=== PATIENT | female | born 1960 | race Caucasian/White ===

== ENCOUNTER 2017-03-20 11:01 | Outpatient (CLI) | payer MEDICARE, OTHER ==
[~2017-03-20] VITALS: Ht 172.7 cm; Wt 118.6 kg
[2017-03-20 11:26] VITALS: BP 117/74
[2017-03-20 12:22] LABS: BASOPHILS % (AUTO) 0 % (0-10); EOSINOPHILS # (AUTO) 0.2 10^3/uL (0.0-0.3); EOSINOPHILS % (AUTO) 2 % (0-10); LYMPHOCYTES # (AUTO) 4.2 X 10^3 (1.0-4.0); LYMPHOCYTES % (AUTO) 46 % (12-44); MEAN CORPUSCULAR HEMOGLOBIN 32 PG (25-34); MEAN CORPUSCULAR HGB CONC 36 G/DL (32-36); MEAN CORPUSCULAR VOLUME 87 FL (80-99); MEAN PLATELET VOLUME 10.3 FL (7.4-10.4); MONOCYTES # (AUTO) 0.8 X 10^3 (0.0-1.0); MONOCYTES % (AUTO) 9 % (0-12); NEUTROPHILS # (AUTO) 3.9 X 10^3 (1.8-7.8); NEUTROPHILS % (AUTO) 43 % (42-75); PLATELET COUNT 270 10^3/uL (130-400); RED BLOOD COUNT 5.02 10^6/uL (4.35-5.85); RED CELL DISTRIBUTION WIDTH 12.8 % (10.0-14.5); WHITE BLOOD COUNT 9.1 10^3/uL (4.3-11.0)
[2017-03-20] MEDS ORDERED: LEVO75TA6 PO (13:30)
[2017-03-20] MEDS ORDERED: CYCL1DRO OP (13:30)
[2017-03-20] MEDS ORDERED: ATEN1TAB3 PO (13:30)
[2017-03-20] MEDS ORDERED: OMEP20CA12 PO (13:30)
[2017-03-20] MEDS ORDERED: OXYC-465 PO (13:30)
[2017-03-20] MEDS ORDERED: ATOR20TA66 PO (13:30)
[2017-03-20] MEDS ORDERED: TRAZ-28 PO (13:30)
[2017-03-20] MEDS ORDERED: DULO60CA58 PO (13:30)
== END 2017-03-20 13:30 | disposition home or self-care (01) ==
LOC: PREOP 11:01
PROVIDERS: ATTEND Surgery
DX: Z01.812 Encounter for preprocedural laboratory examination (principal); K43.9 Ventral hernia without obstruction or gangrene
CPT/HCPCS: 36415; 85025; 87081

== ENCOUNTER 2017-04-03 15:21 | Inpatient (IN) | payer MEDICARE, OTHER ==
[~2017-04-03] VITALS: Ht 172.7 cm; Wt 118.6 kg
[~2017-04-03 15:21] MED LIST: ASPI-983 PO; ATEN1TAB3 PO; ATOR20TA66 PO; CYCL1DRO OU; DULO60CA58 PO; LEVO75TA6 PO; OMEP20CA12 PO; OXYC-197 PO; OXYC-465 PO; TRAZ-28 PO
[2017-04-03 16:00] VITALS: BP 142/89
[2017-04-03 16:12] LABS: RED BLOOD COUNT 5.06 10^6/uL (4.35-5.85); RED CELL DISTRIBUTION WIDTH 12.5 % (10.0-14.5); WHITE BLOOD COUNT 13.8 10^3/uL (4.3-11.0)
[2017-04-03] MEDS ORDERED: MAGNESIUM CITRATE 300 ML BTL PO NR (16:15)
[2017-04-03] MEDS: HYDROcodone/APAP 5 MG/325 MG (LORTAB) TAB PO PRN ×2 (16:15→20:43)
[2017-04-03] MEDS ORDERED: VANCOMYCIN INJECTION 0.1 MG in NS (IVPB) 250 ML IV SCH (16:15)
[2017-04-03] MEDS ORDERED: ASPI-983 PO (16:15)
[2017-04-03] MEDS ORDERED: OXYC-465 PO (16:15)
[2017-04-03] MEDS ORDERED: VANCOMYCIN 2000 MG/NS 500 ML IVPB IV NR ×2 (16:15)
[2017-04-03] MEDS: LACTATED RINGERS 1,000 ML IV SCH (16:15)
[2017-04-03 16:29] LABS: CALCIUM 10.4 MG/DL (8.5-10.1); CREATININE SERUM 0.97 MG/DL (0.60-1.30); POTASSIUM 3.6 MMOL/L (3.6-5.0)
[2017-04-03] MEDS ORDERED: INFLUENZA TRIvalent 2017-2018 0.5 ML/45 MCG SYR IM ONE (17:00)
[2017-04-03] MEDS ORDERED: ACETAMINOPHEN 500 MG TAB (TYLENOL) PO PRN (18:00)
[2017-04-03] MEDS ORDERED: diphenhydrAMINE 25 MG TAB (BENADRYL) PO PRN (18:45)
[2017-04-03] MEDS ORDERED: PIPERACILLIN SODIUM/TAZOBACTAM 4.5 GM in NS (IVPB) 100 ML IV SCH (18:45)
[2017-04-03] MEDS ORDERED: PIPERACILLIN/TAZOBACTAM 4.5 GM/NS 100 ML IV NR ×2 (19:00)
[2017-04-03 20:00] VITALS: BP 124/70
[2017-04-04 00:18] VITALS: BP 126/71
[2017-04-04] MEDS: PIPERACILLIN/TAZOBACTAM 4.5 GM/NS 100 ML IVPB IV SCH ×6 (01:19→17:40)
[2017-04-04] MEDS: HYDROcodone/APAP 5 MG/325 MG (LORTAB) TAB PO PRN ×4 (01:24→17:41)
[2017-04-04 04:20] VITALS: BP 121/72
[2017-04-04] MEDS ORDERED: VANCOMYCIN 1500 MG/NS 500 ML IVPB IV SCH ×2 (05:00)
[2017-04-04 08:00] VITALS: BP 122/62
--- NOTE | 2017-04-04 10:56 | Progress Note-Standard ---
Standard Progress Note Progress Notes/Assess & Plan Date Seen by Provider: Apr 04, 2017 Time Seen by Provider: 10:55 Progress/Assessment & Plan pain over the left upper quadrant incision much resolved. Reaction to vancomycin. Currently on Zosyn. Afebrile. Lungs clear. Merits inpatient care due to the requirement for IV antibiotics. Final Diagnosis postoperative cellulitis of abdominal wall JOSE J SALDANA MD Apr 04, 2017 10:56 am
[2017-04-04 12:00] VITALS: BP 126/75
[2017-04-04] MEDS ORDERED: ARTIFICAL TEARS 0.4 ML UNIT DOSE (REFRESH PLUS) OU PRN (12:45)
[2017-04-04] MEDS: ASPIRIN E.C. 81 MG (ECOTRIN) TAB PO SCH (13:15)
[2017-04-04] MEDS: LEVOTHYROXINE 75 MCG (LEVOTHROID) TABLET PO SCH (13:15)
[2017-04-04] MEDS: ENOXAPARIN 40 MG/0.4 ML (LOVENOX) SYR SC SCH (13:16)
[2017-04-04 15:47] VITALS: BP 138/76
[2017-04-04] MEDS ORDERED: TROUGH ORDER-PHARMACY XX NR (16:00)
[2017-04-04] MEDS: LACTATED RINGERS 1,000 ML IV SCH (16:08)
[2017-04-04 19:22] VITALS: BP 126/59
[2017-04-04] MEDS: ATENOLOL 50 MG (TENORMIN) TAB PO SCH (21:02)
[2017-04-04] MEDS: ATORVASTATIN 20 MG (LIPITOR) TABLET PO SCH (21:03)
[2017-04-04] MEDS: CHLORTHALIDONE 25 MG (HYGROTON) TABLET PO SCH (21:03)
[2017-04-04] MEDS: traZODone 50 MG (DESYREL) TAB PO SCH (21:03)
[2017-04-04] MEDS: PANTOPRAZOLE 20 MG TABLET (PROTONIX) PO SCH (21:03)
[2017-04-04] MEDS: DULoxetine 30 MG (CYMBALTA) CAP PO SCH (21:04)
[2017-04-05] VITALS: BP 134/62
[2017-04-05] MEDS: HYDROcodone/APAP 5 MG/325 MG (LORTAB) TAB PO PRN ×4 (00:33→19:04)
[2017-04-05] MEDS: PIPERACILLIN/TAZOBACTAM 4.5 GM/NS 100 ML IVPB IV SCH ×6 (00:34→16:32)
[2017-04-05] MEDS: LACTATED RINGERS 1,000 ML IV SCH ×4 (02:40→11:52)
[2017-04-05 04:14] VITALS: BP 120/63
[2017-04-05 08:00] VITALS: BP 121/58
[2017-04-05] MEDS: ASPIRIN E.C. 81 MG (ECOTRIN) TAB PO SCH (08:47)
[2017-04-05] MEDS: LEVOTHYROXINE 75 MCG (LEVOTHROID) TABLET PO SCH (08:48)
[2017-04-05] MEDS: ENOXAPARIN 40 MG/0.4 ML (LOVENOX) SYR SC SCH (11:52)
[2017-04-05 12:00] VITALS: BP 141/67
--- NOTE | 2017-04-05 13:38 | Progress Note-Standard ---
Standard Progress Note Progress Notes/Assess & Plan Date Seen by Provider: Apr 05, 2017 Time Seen by Provider: 13:36 Progress/Assessment & Plan pain over the left upper quadrant incision much resolved. Reaction to vancomycin. Currently on Zosyn. Afebrile. Lungs clear. Merits inpatient care due to the requirement for IV antibiotics. Pain and cellulitis over the LUQ much improved. Afebrile. Reports being constipated. Will use mag citrate. Continue antibiotics over the weekend. Final Diagnosis Cellulitis of abdominal wall JOSE J SALDANA MD Apr 05, 2017 1:38 pm
[2017-04-05] MEDS ORDERED: MAGNESIUM CITRATE 300 ML BTL PO NR (13:45)
[2017-04-05 15:40] VITALS: BP 130/72
[2017-04-05] MEDS ORDERED: CATHETER FLUSH 10 ML SYR IV PRN (17:15)
[2017-04-05 19:02] VITALS: BP 134/60
[2017-04-05] MEDS: CATHETER FLUSH 10 ML SYR IV SCH (21:26)
[2017-04-05] MEDS: CHLORTHALIDONE 25 MG (HYGROTON) TABLET PO SCH (21:26)
[2017-04-05] MEDS: PANTOPRAZOLE 20 MG TABLET (PROTONIX) PO SCH (21:26)
[2017-04-05] MEDS: traZODone 50 MG (DESYREL) TAB PO SCH (21:26)
[2017-04-05] MEDS: ATENOLOL 50 MG (TENORMIN) TAB PO SCH (21:26)
[2017-04-05] MEDS: ATORVASTATIN 20 MG (LIPITOR) TABLET PO SCH (21:26)
[2017-04-05] MEDS: DULoxetine 30 MG (CYMBALTA) CAP PO SCH (21:26)
[2017-04-06] VITALS: BP 130/78
[2017-04-06] MEDS: PIPERACILLIN/TAZOBACTAM 4.5 GM/NS 100 ML IVPB IV SCH ×6 (00:35→17:13)
[2017-04-06 04:00] VITALS: BP 121/62
[2017-04-06] MEDS: HYDROcodone/APAP 5 MG/325 MG (LORTAB) TAB PO PRN ×4 (04:28→21:56)
[2017-04-06] MEDS: CATHETER FLUSH 10 ML SYR IV SCH ×3 (06:31→22:22)
[2017-04-06] MEDS: LEVOTHYROXINE 75 MCG (LEVOTHROID) TABLET PO SCH (06:31)
[2017-04-06 08:00] VITALS: BP 118/61
[2017-04-06] MEDS: ASPIRIN E.C. 81 MG (ECOTRIN) TAB PO SCH (08:56)
[2017-04-06] MEDS: ENOXAPARIN 40 MG/0.4 ML (LOVENOX) SYR SC SCH (11:29)
--- NOTE | 2017-04-06 11:57 | Progress Note ---
Subjective Date Seen by Provider: Apr 06, 2017 Time Seen by Provider: 11:00 Subjective/Events-last exam Patient feeling well. She states the redness around incisions is going down. Her pain is controlled. She denies n/v fever sweats chills shortness of breath or chest pain. Objective Exam Vital Signs Date Time Temp Pulse Resp B/P (MAP) Pulse Ox O2 Delivery O2 Flow Rate FiO2 04/06/17 08:00 97.6 64 20 118/61 95 Room Air 04/06/17 04:00 97.1 64 18 121/62 95 Room Air 04/06/17 00:00 97.5 59 20 130/78 97 Room Air 04/05/17 19:02 97.3 69 18 134/60 97 Room Air 04/05/17 15:40 97.3 67 18 130/72 97 Room Air 04/05/17 12:00 97.6 63 22 141/67 98 Room Air Capillary Refill : General Appearance: No Apparent Distress Neck: Normal Inspection, Non Tender, Supple Respiratory: No Accessory Muscle Use, No Respiratory Distress Cardiovascular: Regular Rate, Rhythm Gastrointestinal: soft (incsional tenderness. Minimal erythema around incision.) Extremity: Normal Inspection, Non Tender Neurologic/Psychiatric: Alert, Oriented x3, No Motor/Sensory Deficits, Normal Mood/Affect Skin: Warm/Dry (erythema as noted above) Results Lab Microbiology 04/03/17 Urine Culture - Preliminary, Resulted Assessment/Plan Assessment/Plan Assessment/Plan s/p robotic assisted ventral hernia performed on 03/27/17 cellulitis of abdominal wall continue on Zosyn dvt prophylaxis on lovenox/scd Incentive spirometer pain control Clinical Quality Measures DVT/VTE Risk/Contraindication: Risk Factor Score Per Nursin RFS Level Per Nursing on Admit: 3=High ROSHAN PRICE DO Apr 06, 2017 11:57
[2017-04-06 12:00] VITALS: BP 97/54
[2017-04-06 16:34] VITALS: BP 128/69
[2017-04-06] MEDS: PANTOPRAZOLE 20 MG TABLET (PROTONIX) PO SCH (21:48)
[2017-04-06] MEDS: traZODone 50 MG (DESYREL) TAB PO SCH (21:48)
[2017-04-06] MEDS: ATENOLOL 50 MG (TENORMIN) TAB PO SCH (21:48)
[2017-04-06] MEDS: CHLORTHALIDONE 25 MG (HYGROTON) TABLET PO SCH (21:48)
[2017-04-06] MEDS: DULoxetine 30 MG (CYMBALTA) CAP PO SCH (21:48)
[2017-04-06] MEDS: ATORVASTATIN 20 MG (LIPITOR) TABLET PO SCH (21:49)
[2017-04-07] VITALS: BP 116/56
[2017-04-07] MEDS: PIPERACILLIN/TAZOBACTAM 4.5 GM/NS 100 ML IVPB IV SCH ×6 (01:35→16:38)
[2017-04-07] MEDS: CATHETER FLUSH 10 ML SYR IV SCH ×3 (05:11→21:57)
[2017-04-07] MEDS: HYDROcodone/APAP 5 MG/325 MG (LORTAB) TAB PO PRN ×4 (05:44→17:51)
[2017-04-07] MEDS: LEVOTHYROXINE 75 MCG (LEVOTHROID) TABLET PO SCH (05:44)
[2017-04-07 08:00] VITALS: BP 115/58
[2017-04-07] MEDS: ASPIRIN E.C. 81 MG (ECOTRIN) TAB PO SCH (08:37)
--- NOTE | 2017-04-07 13:31 | Progress Note ---
Subjective Date Seen by Provider: Apr 07, 2017 Time Seen by Provider: 10:48 Subjective/Events-last exam Patient states she's doing well. She has no new complaints. She states the redness continues to decrease. She's starting diet. She denies any nausea vomiting fever sweats chills shortness of breath or chest pain. Objective Exam Vital Signs Date Time Temp Pulse Resp B/P (MAP) Pulse Ox O2 Delivery O2 Flow Rate FiO2 04/07/17 08:00 98.2 67 20 115/58 96 Room Air 04/07/17 00:00 98.6 60 20 116/56 96 Room Air 04/06/17 21:48 Room Air 04/06/17 16:34 98.4 67 20 128/69 97 Room Air Capillary Refill : General Appearance: No Apparent Distress Neck: Normal Inspection, Non Tender, Supple Respiratory: No Accessory Muscle Use, No Respiratory Distress Cardiovascular: Regular Rate, Rhythm Gastrointestinal: soft (incsional tenderness. Minimal erythema around incision , continues to decrease) Extremity: Normal Inspection, Non Tender Neurologic/Psychiatric: Alert, Oriented x3, No Motor/Sensory Deficits, Normal Mood/Affect Skin: Warm/Dry (erythema as noted above) Results Lab Microbiology 04/03/17 Urine Culture - Final, Complete Streptococcus Viridans Assessment/Plan Assessment/Plan Assessment/Plan s/p robotic assisted ventral hernia performed on 03/27/17 cellulitis of abdominal wall continue on Zosyn dvt prophylaxis on lovenox/scd Incentive spirometer pain control Clinical Quality Measures DVT/VTE Risk/Contraindication: Risk Factor Score Per Nursin RFS Level Per Nursing on Admit: 3=High ROSHAN PRICE DO Apr 07, 2017 13:31
[2017-04-07] MEDS: ENOXAPARIN 40 MG/0.4 ML (LOVENOX) SYR SC SCH (13:58)
[2017-04-07 15:30] VITALS: BP 105/70
[2017-04-07] MEDS: traZODone 50 MG (DESYREL) TAB PO SCH (20:48)
[2017-04-07] MEDS: DULoxetine 30 MG (CYMBALTA) CAP PO SCH (20:48)
[2017-04-07] MEDS: CHLORTHALIDONE 25 MG (HYGROTON) TABLET PO SCH (20:48)
[2017-04-07] MEDS: ATENOLOL 50 MG (TENORMIN) TAB PO SCH (20:48)
[2017-04-07] MEDS: PANTOPRAZOLE 20 MG TABLET (PROTONIX) PO SCH (20:48)
[2017-04-07] MEDS: ATORVASTATIN 20 MG (LIPITOR) TABLET PO SCH (20:49)
[2017-04-08 00:31] VITALS: BP 115/66
[2017-04-08] MEDS: PIPERACILLIN/TAZOBACTAM 4.5 GM/NS 100 ML IVPB IV SCH ×4 (01:00→08:51)
[2017-04-08] MEDS: LEVOTHYROXINE 75 MCG (LEVOTHROID) TABLET PO SCH (06:21)
[2017-04-08] MEDS: CATHETER FLUSH 10 ML SYR IV SCH ×2 (06:21→12:05)
[2017-04-08 06:42] LABS: MEAN PLATELET VOLUME 10.1 FL (7.4-10.4); RED BLOOD COUNT 4.68 10^6/uL (4.35-5.85); RED CELL DISTRIBUTION WIDTH 12.2 % (10.0-14.5); WHITE BLOOD COUNT 10.8 10^3/uL (4.3-11.0)
[2017-04-08 06:59] LABS: ANION GAP 10 MMOL/L (5-14); BLOOD UREA NITROGEN 16 MG/DL (7-18); BUN/CREATININE RATIO 19; CALCIUM 9.2 MG/DL (8.5-10.1); CARBON DIOXIDE 27 MMOL/L (21-32); CHLORIDE 103 MMOL/L (98-107); CREATININE SERUM 0.85 MG/DL (0.60-1.30); GFR ESTIMATED > 60; GLUCOSE 122 MG/DL (70-105); SODIUM 140 MMOL/L (135-145)
[2017-04-08] MEDS: ASPIRIN E.C. 81 MG (ECOTRIN) TAB PO SCH (07:44)
[2017-04-08] MEDS: HYDROcodone/APAP 5 MG/325 MG (LORTAB) TAB PO PRN ×2 (07:44→12:05)
[2017-04-08 08:00] VITALS: BP 127/64
[2017-04-08] MEDS: ENOXAPARIN 40 MG/0.4 ML (LOVENOX) SYR SC SCH (12:04)
--- NOTE | 2017-04-08 21:37 | Progress Note-Standard ---
Standard Progress Note Progress Notes/Assess & Plan Date Seen by Provider: Apr 08, 2017 Time Seen by Provider: 13:25 Progress/Assessment & Plan pain over the left upper quadrant incision much resolved. Reaction to vancomycin. Currently on Zosyn. Afebrile. Lungs clear. Merits inpatient care due to the requirement for IV antibiotics. Pain and cellulitis over the LUQ much improved. Afebrile. Reports being constipated. Will use mag citrate. Continue antibiotics over the weekend. inflammatory changes around the incisions resolved and the patient is comfortable. We will be discharged with follow-up as scheduled before. Final Diagnosis cellulitis of the abdominal wall JOSE J SALDANA MD Apr 08, 2017 9:37 pm
--- NOTE | 2017-04-08 21:39 | Discharge Summary ---
Diagnosis/Chief Complaint Date of Admission Apr 04, 2017 at 10:00 am Date of Discharge Apr 08, 2017 at 3:30 pm Discharge Date: Apr 08, 2017 Discharge Time: 16:00 Admission Diagnosis Admission Diagnosis cellulitis around the left upper quadrant of the abdominal wall Discharge Diagnosis same Reason Hospital Visit this lady had undergone robotic assisted repair of a ventral hernia with mesh a week prior to her current admission. She reported fever and was found to have cellulitis around the incision over the left upper quadrant of the abdomen. Therefore, she was admitted and intravenous antibiotics where administered. Within 48 hours, she became afebrile and the inflammatory changes resolved. She has been instructed to return for follow-up that has been scheduled before. Discharge Summary Discharge Physical Examination Allergies: Coded Allergies: Gadolinium-Containing Contrast Medi (Verified Allergy, Mild, 03/20/17) adhesive tape (Verified Allergy, Mild, RASH, 03/20/17) benzoin (Verified Allergy, Mild, RASH/BLISTERS, 03/20/17) vancomycin (Verified Allergy, Unknown, RASH, 04/07/17) Vitals & I&Os Vital Signs Date Time Temp Pulse Resp B/P (MAP) Pulse Ox O2 Delivery O2 Flow Rate FiO2 04/08/17 08:00 98.9 64 20 127/64 94 Room Air 04/04/17 04:20 2.00 Hospital Course Labs (last 24 hrs) Laboratory Tests 04/03/17 16:00: White Blood Count 13.8H, Red Blood Count 5.06, Hemoglobin 16.1H, Hematocrit 45, Mean Corpuscular Volume 90, Mean Corpuscular Hemoglobin 32, Mean Corpuscular Hemoglobin Concent 36, Red Cell Distribution Width 12.5, Platelet Count 352, Mean Platelet Volume 10.0, Sodium Level 140, Potassium Level 3.6, Chloride Level 101, Carbon Dioxide Level 28, Anion Gap 11, Blood Urea Nitrogen 19H, Creatinine 0.97, Estimat Glomerular Filtration Rate 59, BUN/Creatinine Ratio 20 , Glucose Level 103, Calcium Level 10.4H 04/08/17 06:27: White Blood Count 10.8, Red Blood Count 4.68, Hemoglobin 14.7, Hematocrit 42, Mean Corpuscular Volume 91, Mean Corpuscular Hemoglobin 31, Mean Corpuscular Hemoglobin Concent 35, Red Cell Distribution Width 12.2, Platelet Count 318, Mean Platelet Volume 10.1, Sodium Level 140, Potassium Level 4.0, Chloride Level 103, Carbon Dioxide Level 27, Anion Gap 10, Blood Urea Nitrogen 16, Creatinine 0.85, Estimat Glomerular Filtration Rate > 60, BUN/Creatinine Ratio 19, Glucose Level 122H, Calcium Level 9.2 Microbiology 04/03/17 Urine Culture - Final, Complete Streptococcus Viridans Pending Labs Microbiology Date/Time Source Procedure Growth Status 04/03/17 18:53 Urine Voided Urine Urine Culture - Final Streptococcus Viridans Complete Laboratory Tests 04/03/17 16:00: White Blood Count 13.8, Red Blood Count 5.06, Hemoglobin 16.1, Hematocrit 45, Mean Corpuscular Volume 90, Mean Corpuscular Hemoglobin 32, Mean Corpuscular Hemoglobin Concent 36, Red Cell Distribution Width 12.5, Platelet Count 352, Mean Platelet Volume 10.0, Sodium Level 140, Potassium Level 3.6, Chloride Level 101, Carbon Dioxide Level 28, Anion Gap 11, Blood Urea Nitrogen 19, Creatinine 0.97, Estimat Glomerular Filtration Rate 59, BUN/Creatinine Ratio 20 , Glucose Level 103, Calcium Level 10.4 04/08/17 06:27: White Blood Count 10.8, Red Blood Count 4.68, Hemoglobin 14.7, Hematocrit 42, Mean Corpuscular Volume 91, Mean Corpuscular Hemoglobin 31, Mean Corpuscular Hemoglobin Concent 35, Red Cell Distribution Width 12.2, Platelet Count 318, Mean Platelet Volume 10.1, Sodium Level 140, Potassium Level 4.0, Chloride Level 103, Carbon Dioxide Level 27, Anion Gap 10, Blood Urea Nitrogen 16, Creatinine 0.85, Estimat Glomerular Filtration Rate > 60, BUN/Creatinine Ratio 19, Glucose Level 122, Calcium Level 9.2 Discharge Home Medications: Active Scripts Active Reported Aspirin EC (Aspirin) 81 Mg Tablet. 81 Mg PO DAILY Oxycodone-Acetaminophen 10-325 (Oxycodone HCl/Acetaminophen) 1 Each Tablet 1 Tab PO Q6H PRN Trazodone HCl 50 Mg Tablet 50 Mg PO HS Levothyroxine Sodium 75 Mcg Tablet 75 Mcg PO DAILY Atorvastatin Calcium 20 Mg Tablet 20 Mg PO HS Restasis (Cyclosporine) 1 Each Droperette 1 Drop OU BID Duloxetine HCl 60 Mg Capsule. 60 Mg PO HS Omeprazole 20 Mg Capsule.dr 20 Mg PO HS Atenolol-Chlorthalidone 50-25 (Atenolol/Chlorthalidone) 1 Each Tablet 1 Tab PO HS Instructions to patient/family Please see electronic discharge instructions given to patient. Clinical Quality Measures DVT/VTE Risk/Contraindication: Risk Factor Score Per Nursin RFS Level Per Nursing on Admit: 3=High JOSE J SALDANA MD Apr 08, 2017 9:39 pm
== END 2017-04-08 15:30 | disposition home or self-care (01) | DRG 863 ==
LOC: 4TH 15:35 → OBSVTOIN 04-04 10:00
PROVIDERS: ADMIT Surgery; ATTEND Surgery
DX: T81.4XXA Infection following a procedure, initial encounter (principal); L03.311 Cellulitis of abdominal wall; K59.00 Constipation, unspecified
CPT/HCPCS: 36415; 80048; 85027; 87088; 94664; 99211; G0378

== ENCOUNTER → 2017-05-01 | Outpatient (CLI) | payer MEDICARE, OTHER ==
[~2017-05-01] MED LIST changes: +CATHETER FLUSH 10 ML SYR IV PRN; +IOHEXOL 350 MG/ML 100 ML (OMNIPAQUE 350) VIAL IV ONE; +NS 100 ML (IVPB) BAG IV ONE
[2017-05-01 10:28] LABS: BLOOD UREA NITROGEN 18 MG/DL (7-18); BUN/CREATININE RATIO 23; GFR ESTIMATED > 60
--- NOTE | 2017-05-01 12:13 | Diagnostic Imaging Report ---
PROCEDURE: CT abdomen and pelvis with contrast. TECHNIQUE: Multiple contiguous axial images were obtained through the abdomen and pelvis after administration of intravenous contrast. INDICATION: Left-sided abdominal pain and swelling, previous hernia surgery. I have no priors. FINDINGS: The lung bases were clear. There is mild to moderate hepatic steatosis without liver mass. The gallbladder is surgically absent, no pathological dilatation of the bile ducts. The spleen, adrenals and pancreas unremarkable. Incidental duodenal diverticula immediately at the junction of the descending and transverse duodenum noted. No pathological appearing abdominopelvic mesenteric or retroperitoneal lymph nodes. There is no ascites or free air. There is mild induration and increased density of the subcutaneous fat periumbilical and superficial to the infraumbilical left lower abdominal wall. An abscess or fluid collection was not found and no suspicious retained opaque foreign body evident. There are no findings of residual or recurrent abdominal wall full-thickness defect. No rectus sheath hematoma or abscess. There is enhancement of the bilateral inferior epigastric arteries and their primary branches without pseudoaneurysm. The unobstructed kidneys were normal. The urinary bladder normal. The uterus absent. There is no adnexal lesion. Decompressive lumbar laminectomies and chronic L5 spondylolysis defects noted. There is a spinal stimulator present. IMPRESSION: Mild abdominal wall subcutaneous induration may reflect inflammatory or postoperative change. No rectus sheath collection or hernia. No abscess, free air, bowel obstruction or ileus. Fatty liver with previous cholecystectomy. Unobstructed urinary tracts. Dictated by: Dictated on workstation # [id number]
== END ==
LOC: RAD 09:55
PROVIDERS: ATTEND Surgery
DX: K76.0 Fatty (change of) liver, not elsewhere classified (principal); Z90.49 Acquired absence of other specified parts of digestive tract
CPT/HCPCS: 36415; 74177; 82565; 84520